=== PATIENT | female | born 1945 | race Two or more races ===

== ENCOUNTER 2020-07-30 23:10 | Emergency (ER) | payer MEDICARE, OTHER ==
[~2020-07-30] VITALS: Ht 162.6 cm; Wt 63.5 kg
--- NOTE | 2020-07-30 23:14 | NUR ---
[id number] FROM HOME C/O FOREHEAD LACERATION S/P MECHANICAL FALL GREENHOUSE ASSISTANT -KO, -BLOOD THINNER, +TDAP UP TO DATE, PT AAOX2, ABLE TO MAKE NEEDS KNOWN, DENIES ANY DIZZINESS, NO SOB, NO N/V NOTED. VSS. WCTM
--- NOTE | 2020-07-31 00:32 | NUR ---
called linda left message
--- NOTE | 2020-07-31 00:32 | NUR ---
linda [phone]
--- NOTE | 2020-07-31 01:01 | NUR ---
[facility] eta [phone]
--- NOTE | 2020-07-31 01:22 | NUR ---
called [facility], spoke to jj, aware pt will be coming back.
--- NOTE | 2020-07-31 02:45 | NUR ---
PT LEFT [facility]IA [facility] IN STABLE CONDITION, NOT IN ANY DISTRESS, -SOB.
[2020-07-31 06:27] VITALS: BP 129/69
== END 2020-07-31 02:45 | disposition home or self-care (01) ==
LOC: ER 23:12
DX: S01.81XA Laceration without foreign body of other part of head, initial encounter (principal); W18.39XA Other fall on same level, initial encounter; Y93.89 Activity, other specified; Y92.89 Other specified places as the place of occurrence of the external cause; Y99.8 Other external cause status
CPT/HCPCS: 70450-TC

== ENCOUNTER 2021-11-14 19:42 | Emergency (ER) | payer MEDICARE, OTHER ==
[~2021-11-14] VITALS: Ht 162.6 cm; Wt 61.7 kg
--- NOTE | 2021-11-14 20:30 | NUR ---
TO ER BED 3. [id number] FROM [facility] C/O FALL WHILE USING WALKER, LAC TO R LEG. PT DENIES HEAD TRAUMA. DOES NOT RECALL LAST TETANUS SHOT. AWAITING MD TYSON
[2021-11-14] MEDS ORDERED: TDAP [DIPH/PERTUSSIS/TET] 0.5 ML VIAL IM ONE ×2 (20:52→21:00)
[2021-11-14] MEDS ORDERED: LIDOCAINE 1%-EPI 1:100,000 20 ML VIAL TP ONE (21:00)
--- NOTE | 2021-11-14 21:13 | NUR ---
AT BEDSIDE FOR WOUND REPAIR
--- NOTE | 2021-11-14 23:49 | NUR ---
[facility] ETA X [id number]
--- NOTE | 2021-11-15 00:32 | NUR ---
REPORT GIVEN TO ESTEFANIA CAREGIVER AT THE [facility]
--- NOTE | 2021-11-15 00:33 | NUR ---
[facility] UNIT 305 AT BEDSIDE FOR PT TRANSPORT TO [facility]
--- NOTE | 2021-11-15 00:44 | NUR ---
PT LEFT ON GURNEY WITH 2 EMT
[2021-11-15 00:47] VITALS: BP 127/71
== END 2021-11-15 00:47 ==
LOC: ER 19:52
DX: S71.111A Laceration without foreign body, right thigh, initial encounter (principal); W18.30XA Fall on same level, unspecified, initial encounter; Y93.01 Activity, walking, marching and hiking; Y92.89 Other specified places as the place of occurrence of the external cause; Y99.8 Other external cause status
CPT/HCPCS: 90715

== ENCOUNTER 2021-12-13 15:52 | Emergency (ER) | payer MEDICARE, OTHER ==
[~2021-12-13] VITALS: Ht 162.6 cm; Wt 62.6 kg
--- NOTE | 2021-12-13 15:56 | NUR ---
TO ER BED 1, BIB RA [facility] FROM [facility],LACERATION TO LEFT FOREARM,S/P GLF, AAOX2, BREATHING EVEN AND NON LABORED, AWAITING MD ORDERS
[2021-12-13] MEDS ORDERED: TDAP [DIPH/PERTUSSIS/TET] 0.5 ML VIAL IM ONE ×2 (16:30→16:40)
[2021-12-13] MEDS ORDERED: LIDOCAINE 1%-EPI 1:100,000 50 ML VIAL IJ ONE (16:30)
--- NOTE | 2021-12-13 16:50 | NUR ---
blood drow and sent to lab
[2021-12-13 17:08] LABS: BASOPHILS % (AUTO) 0.4 % (0.0-2.0); EOSINOPHILS % (AUTO) 1.8 % (0.0-6.0); HEMATOCRIT 38 % (33-45); HEMOGLOBIN 12.7 g/dL (11.5-14.8); LYMPHOCYTES # (AUTO) 1.3 K/uL (0.8-4.8); LYMPHOCYTES % (AUTO) 27.7 % (20.0-44.0); MEAN CORPUSCULAR HGB CONC 34 g/dl (31.0-36.0); MEAN CORPUSCULAR VOLUME 88 fL (82-100); MONOCYTES # (AUTO) 0.7 K/uL (0.1-1.30); MONOCYTES % (AUTO) 15.9 % (2.0-12.0); NEUTROPHILS # (AUTO) 2.4 K/uL (1.8-8.9); NEUTROPHILS % (AUTO) 54.2 % (43.0-81.0); PLATELET COUNT (AUTO) 160 K/uL (150-450); RED BLOOD CELL COUNT(AUTO) 4.28 MIL/uL (4.0-5.2); WHITE BLOOD COUNT (AUTO) 4.5 K/uL (4.3-11.0)
--- NOTE | 2021-12-13 17:08 | NUR ---
TO CT SCAN
[2021-12-13 17:18] LABS: CALCIUM, SERUM 8.4 mg/dL (8.5-10.1); CARBON DIOXIDE 26 mmol/L (21-32); CHLORIDE 103 mmol/L (98-107); CREATININE 0.8 mg/dL (0.6-1.3); GLUCOSE 96 mg/dL (74-106); POTASSIUM 4.5 mmol/L (3.5-5.1); SODIUM SERUM 136 mmol/L (136-145); UREA NITROGEN, BLOOD 14 mg/dL (7-18)
[2021-12-13 18:38] LABS: BILIRUBIN,URINE NEGATIVE (NEGATIVE); COLOR,URINE YELLOW (YELLOW); LEUKOCYTE ESTERASE ,URINE NEGATIVE (NEGATIVE); NITRITE, URINE NEGATIVE (NEGATIVE); PH,URINE 6.5 (5.0-8.0); PROTEIN,URINE NEGATIVE (NEGATIVE); UGLUCOSE NEGATIVE (NEGATIVE)
[2021-12-13 18:44] LABS: BAND % (MANUAL) 1 % (0.0-5.0); EOSINOPHILS % (MANUAL) 5 % (0-4); LYMPHOCYTES % (MANUAL) 29 % (16-48); MONOCYTES % (MANUAL) 7 % (0-11.0); NEUTROPHILS % (MANUAL) 58 (42-76)
[2021-12-13 18:48] LABS: BACTERIA,URINE 2+ /HPF (None Seen); RBC,URINE 0-2 /HPF (0-2); SQUAMOUS EPITHELIAL CELL,UR 21-50 /HPF (None Seen); WBC,URINE 0-2 /HPF (0-3)
--- NOTE | 2021-12-13 19:14 | NUR ---
AT BEDSIDE FOR LAC REPAIR
--- NOTE | 2021-12-13 19:18 | NUR ---
REPORT GIVEN TO JACQUI TAVARES FOR RAHUL
--- NOTE | 2021-12-13 19:41 | NUR ---
SUTURING OF WOUND DONE BY DR LIU AT BEDSIDE
--- NOTE | 2021-12-13 20:15 | NUR ---
[facility] ETA 7
--- NOTE | 2021-12-13 20:55 | NUR ---
[facility] AT BEDSIDE FOR HEADER OPERATOR
[2021-12-13 20:56] VITALS: BP 129/77
--- NOTE | 2021-12-13 21:02 | NUR ---
IV CANNULA REMOVED.
--- NOTE | 2021-12-13 21:03 | NUR ---
Patient discharged to home in stable condition. Written and verbal after care instructions given. Patient verbalizes understanding of instruction.
== END 2021-12-13 21:08 ==
LOC: ER 15:55
DX: S51.012A Laceration without foreign body of left elbow, initial encounter (principal); R55 Syncope and collapse; R51.9 Headache, unspecified; M54.2 Cervicalgia; W18.39XA Other fall on same level, initial encounter; Y93.89 Activity, other specified; Y92.89 Other specified places as the place of occurrence of the external cause; Y99.8 Other external cause status
CPT/HCPCS: 12034; 36415; 70450; 71045; 72125; 73080; 80048; 81001; 84484; 85007; 85025; 85730; 87086; 90471; 90715; 93005; 99285; A6403; J3490

== ENCOUNTER 2021-12-25 15:33 | Inpatient (IN) | payer MEDICARE, OTHER ==
[~2021-12-25] VITALS: Ht 165.1 cm; Wt 71.7 kg
--- NOTE | 2021-12-25 15:41 | NUR ---
BIB RA 60 FROM [facility]ARE [facility],MORE ALTERED THAN NORMAL X AROUND [id number] WITH R FACIAL DROOP AND SLURRED SPEECH. TO ER BED 4, HOOKED TO [facility], NSR NOTED. CHANGED TO HOSP GOWN, WARM BLANKET PROVIDED. BREATHING EVEN AND UNLABORED. AWAITING MD TYSON
--- NOTE | 2021-12-25 15:42 | NUR ---
DR LIU AT BEDSIDE
[2021-12-25] MEDS ORDERED: POTA8TAB3 PO (15:51)
[2021-12-25] MEDS ORDERED: ROPI0.5T4 PO (15:51)
[2021-12-25] MEDS ORDERED: PSYL1PAC8 PO (15:51)
[2021-12-25] MEDS ORDERED: CRAN425C6 PO (15:51)
[2021-12-25] MEDS ORDERED: OLAN10TA3 PO (15:51)
[2021-12-25] MEDS ORDERED: ACET-2605 PO (15:51)
[2021-12-25] MEDS ORDERED: FURO-145 PO (15:51)
[2021-12-25] MEDS ORDERED: TEMA15CA PO (15:51)
[2021-12-25] MEDS ORDERED: OLAN5TAB3 PO (15:51)
[2021-12-25] MEDS ORDERED: DIVA125T32 PO ×2 (15:51)
[2021-12-25] MEDS ORDERED: MULT-24 PO (15:51)
[2021-12-25] MEDS ORDERED: DOCU-141 PO (15:51)
[2021-12-25] MEDS ORDERED: ACET-868 PO (15:52)
[2021-12-25] MEDS ORDERED: BISA10SU11 RC (15:52)
[2021-12-25] MEDS ORDERED: NA P133E RC (15:52)
--- NOTE | 2021-12-25 15:52 | NUR ---
PT TAKEN TO CT VIA [facility]
[2021-12-25] MEDS ORDERED: IV LR 1000 ML 1,000 ML IV ONE (16:00)
[2021-12-25] MEDS ORDERED: DEXTROSE 50%-WATER 50 ML DISP.SYRIN IV ONE (16:00)
[2021-12-25 16:02] LABS: BASOPHILS % (AUTO) 0.3 % (0.0-2.0); EOSINOPHILS % (AUTO) 1.8 % (0.0-6.0); HEMATOCRIT 36 % (33-45); LYMPHOCYTES # (AUTO) 2.5 K/uL (0.8-4.8); LYMPHOCYTES % (AUTO) 40.9 % (20.0-44.0); MEAN CORPUSCULAR HGB CONC 33 g/dl (31.0-36.0); MEAN CORPUSCULAR VOLUME 90 fL (82-100); MONOCYTES % (AUTO) 16.2 % (2.0-12.0); NEUTROPHILS # (AUTO) 2.5 K/uL (1.8-8.9); NEUTROPHILS % (AUTO) 40.8 % (43.0-81.0); PLATELET COUNT (AUTO) 201 K/uL (150-450); RED BLOOD CELL COUNT(AUTO) 4.01 MIL/uL (4.0-5.2)
[2021-12-25] MEDS ORDERED: DEXTROSE 50%-WATER 50 ML DISP.SYRIN ONE (16:19)
[2021-12-25 16:39] LABS: THYROID STIMULATING HORMONE 5.391 uIU/mL (0.358-3.74)
[2021-12-25 16:43] LABS: ALANINE AMINOTRANSFERASE 37 U/L (12-78); ALBUMIN 2.9 g/dL (3.4-5.0); ALKALINE PHOSPHATASE 53 U/L (46-116); ASPARTATE AMINOTRANSFERASE 78 U/L (15-37); BILIRUBIN,DIRECT 0.2 mg/dL (0.0-0.2); BILIRUBIN,TOTAL 0.4 mg/dL (0.2-1.0); CALCIUM, SERUM 8.7 mg/dL (8.5-10.1); CREATININE 0.7 mg/dL (0.6-1.3); GLUCOSE 100 mg/dL (74-106); TOTAL PROTEIN, SERUM 6.6 g/dL (6.4-8.2); UREA NITROGEN, BLOOD 18 mg/dL (7-18)
--- NOTE | 2021-12-25 16:57 | NUR ---
GIRISH LOYA SON [phone]
[2021-12-25 17:21] LABS: CARBON DIOXIDE 27 mmol/L (21-32); CHLORIDE 108 mmol/L (98-107); POTASSIUM 3.8 mmol/L (3.5-5.1); SODIUM SERUM 142 mmol/L (136-145)
[2021-12-25 17:37] LABS: EOSINOPHILS % (MANUAL) 2 % (0-4); LYMPHOCYTES % (MANUAL) 36 % (16-48); MONOCYTES % (MANUAL) 12 % (0-11.0); NEUTROPHILS % (MANUAL) 50 (42-76)
--- NOTE | 2021-12-25 18:56 | NUR ---
SUBMITTED MOVE SHEET
--- NOTE | 2021-12-25 19:05 | NUR ---
ASSUMED CARE OF PT. PT SLEEPING COMFORTABLY IN BED ATTACHED TO MEDICAL INSURANCE COLLECTOR AND POX.
--- NOTE | 2021-12-25 19:17 | NUR ---
RAPID COVID SWAB DONE AND SENT TO LAB
--- NOTE | 2021-12-25 20:26 | NUR ---
URINE COLLECTED SENT TO LAB
--- NOTE | 2021-12-25 20:27 | NUR ---
URINE COLLECTED AND SENT TO LAB
--- NOTE | 2021-12-25 20:35 | NUR ---
EPIC PANEL PAGED
--- NOTE | 2021-12-25 21:34 | NUR ---
UPDATED GIRISH LOYA SON [phone]
[2021-12-25 21:59] LABS: BILIRUBIN,URINE NEGATIVE (NEGATIVE); COLOR,URINE YELLOW (YELLOW); LEUKOCYTE ESTERASE ,URINE NEGATIVE (NEGATIVE); NITRITE, URINE NEGATIVE (NEGATIVE); PROTEIN,URINE NEGATIVE (NEGATIVE); UGLUCOSE 100 MG/DL mg/dL (NEGATIVE)
[2021-12-25 22:00] LABS: RBC,URINE 0-2 /HPF (0-2); WBC,URINE 0-2 /HPF (0-3)
[2021-12-25] MEDS ORDERED: ACETAMINOPHEN 325 MG TABLET PO PRN (22:00)
[2021-12-25] MEDS ORDERED: ONDANSETRON HCL/PF 4 MG/2 ML VIAL IVP PRN (22:00)
[2021-12-25] MEDS ORDERED: ENOXAPARIN SODIUM 30 MG/0.3 ML DISP.SYRIN SQ SCH (22:00)
[2021-12-25 22:01] LABS: BACTERIA,URINE 1+ /HPF (None Seen)
--- NOTE | 2021-12-25 22:26 | NUR ---
GAVE REPORT TO CHAITANYA NEVILLE FOR RAHUL
[2021-12-25 22:45] VITALS: BP 124/61
--- NOTE | 2021-12-25 22:45 | NUR ---
MS BOILER ENGINEER NOTE PT TRANSPORTED VIA GURNEY TO UNIT AT THIS TIME. PT FROM [facility] ADMITTED TO [facility] FROM ER UNDER RECORDS AND INFORMATION MANAGER YANELY FOR ADMITTING DX OF HYPOGLYCEMIA. A/O X2. PT STABLE ON ROOM AIR, SATURATING 98%. NO SOB OR S/S OF RESPIRATORY DISTRESS. BREATHING EVEN AND UNLABORED. NOTED WITH MULTIPLE SKIN ISSUES, INCLUDING SUTURES ON L ELBOW, WOUNDS ON B HANDS, L NOSE, L EYEBROW, AND R INDEX FINGER. WOUND CONSULT ORDERED. IV ACCESS R WRIST 20 GAUGE AND LFA 18 GAUGE, INTACT AND PATENT. ORIENTED TO UNIT, STAFF, AND ROOM. ALL BELONGINGS ACCOUNTED FOR AND BELONGINGS LIST SIGNED. SAFETY PRECAUTIONS IN PLACE. BED IN LOWEST LOCKED POSITION, HOB ELEVATED, SIDE RAILS UP X3, AND CALL LIGHT AND TABLE WITHIN REACH. ALL NEEDS MET AT THIS TIME.
[2021-12-25] MEDS: IV D5/ 0.9% NACL 1,000 ML IV PRN (23:33)
--- NOTE | 2021-12-25 23:52 | NUR ---
RN NOTE PHARMACY CALLED AND REQUESTED LOVENOX BE SWITCHED FROM 30 MG Q24H TO 40 MG Q24H DUE TO CREATINE CLEARANCE OF 60. NOTIFIED REVIEW APPRAISER YANELY WITH ORDER TO CHANGE LOVENOX TO 40 MG Q24H. NOTED AND CARRIED OUT.
[2021-12-25] MEDS: ENOXAPARIN SODIUM 40 MG/0.4 ML DISP.SYRIN SQ SCH (23:56)
[2021-12-26] MEDS ORDERED: DEXTROSE 50%-WATER 50 ML DISP.SYRIN IV PRN (06:30)
[2021-12-26 06:32] LABS: BASOPHILS % (AUTO) 0.3 % (0.0-2.0); EOSINOPHILS % (AUTO) 1.9 % (0.0-6.0); HEMATOCRIT 36 % (33-45); HEMOGLOBIN 11.9 g/dL (11.5-14.8); LYMPHOCYTES # (AUTO) 1.8 K/uL (0.8-4.8); MEAN CORPUSCULAR HGB CONC 33 g/dl (31.0-36.0); MEAN CORPUSCULAR VOLUME 91 fL (82-100); MONOCYTES # (AUTO) 0.8 K/uL (0.1-1.30); MONOCYTES % (AUTO) 14.6 % (2.0-12.0); NEUTROPHILS % (AUTO) 51.2 % (43.0-81.0); PLATELET COUNT (AUTO) 159 K/uL (150-450); RED BLOOD CELL COUNT(AUTO) 3.92 MIL/uL (4.0-5.2); WHITE BLOOD COUNT (AUTO) 5.8 K/uL (4.3-11.0)
[2021-12-26] MEDS: BLOOD SUGAR DIAGNOSTIC 1 EACH STRIP IN SCH ×5 (06:43→21:20)
--- NOTE | 2021-12-26 06:43 | NUR ---
MS RN CLOSING NOTE PT AWAKE IN BED. A/O X2. PT STABLE ON ROOM AIR, SATURATING 98%. NO SOB OR S/S OF RESPIRATORY DISTRESS. BREATHING EVEN AND UNLABORED. IV ACCESS R WRIST 20 GAUGE AND LFA 18 GAUGE, INTACT AND PATENT, RUNNING D5 NS @ 100 ML/HR. ALL DUE MEDS GIVEN ORDERED. NO S/S OF HYPOGLYCEMIA. SAFETY PRECAUTIONS IN PLACE AT ALL TIMES. BED IN LOWEST LOCKED POSITION, HOB ELEVATED, SIDE RAILS UP X3, AND CALL LIGHT AND TABLE WITHIN REACH. ALL NEEDS MET AT THIS TIME AND WILL ENDORSE TO ONCOMING SHIFT FOR RAHUL.
[2021-12-26] MEDS ORDERED: CEFTRIAXONE 1 G in IV D5W 50 ML IV SCH (07:00)
[2021-12-26 07:04] LABS: CALCIUM, SERUM 8.7 mg/dL (8.5-10.1); CREATININE 0.6 mg/dL (0.6-1.3); MAGNESIUM 2.1 mg/dL (1.8-2.4); PHOSPHORUS 2.9 mg/dL (2.5-4.9); POTASSIUM 3.9 mmol/L (3.5-5.1)
--- NOTE | 2021-12-26 07:45 | NUR ---
MS RN OPENING NOTES RECEIVED PATIENT SLEEPING COMFORTABLY IN BED, A/O X2. PATIENT IS STABLE ON ROOM AIR, NO SOB OR S/S OF RESPIRATORY DISTRESS. BREATHING EVEN AND UNLABORED. IV ACCESS R WRIST 20 GAUGE AND LFA 18 GAUGE, INTACT AND PATENT, RUNNING D5 NS @ 100 ML/HR. NO S/S OF HYPOGLYCEMIA. SAFETY PRECAUTIONS IN PLACE AT ALL TIMES. BED IN LOWEST LOCKED POSITION, HOB ELEVATED, SIDE RAILS UP X3, AND CALL LIGHT AND TABLE WITHIN REACH. WILL CONTINUE TO MONITOR SHIFT FOR RAHUL.
[2021-12-26 08:00] VITALS: BP 122/85
[2021-12-26] MEDS: CEFTRIAXONE 1 G in IV D5W 50 ML IV SCH (08:04)
[2021-12-26] MEDS: IV D5/ 0.9% NACL 1,000 ML IV PRN (08:15)
--- NOTE | 2021-12-26 10:05 | NUR ---
WOUND CARE CONSULT: PT PRESENTS WITH FACIAL LESIONS, BILATERAL DRY WOUNDS ON ELBOWS, LEFT ARM SUTURES AND SACRAL INTACT DEEP TISSUE INJURY, ALL PRESENT ON ADMISSION. DR DE SOUZA NOTIFIED OF SURGICAL CONSULT REQUEST. PT TO BE PLACED ON CHRISTIANE ISOFLEX LOW AIRLOSS BED. RECOMMENDATIONS MADE FOR SKIN PROTECTION. DISCUSSED WITH NURSING STAFF. MD IN AGREEMENT WITH PLAN OF CARE.
[2021-12-26] MEDS: Z GUARD REMEDY 4 OZ OINT TP SCH (10:39)
[2021-12-26 16:00] VITALS: BP 127/99
--- NOTE | 2021-12-26 17:00 | NUR ---
MS RN NOTES PATIENT'S GLUCOSE LEVEL IS 156 @ 1700. PATIENT HAS NO SLIDING SCALE ORDERED FOR THIS PATIENT, AND WILL CONTINUE TO MONITOR FOR ANY SIGNS OF GLUCOSE LEVEL CHANGES
--- NOTE | 2021-12-26 18:22 | NUR ---
MS RN CLOSING NOTES PATIENT LYING COMFORTABLY IN BED. SHE IS ALERT/ORIENTED X 2, PATIENT STABLE ON RA, NO S/S OF DISTRESS OR SOB NOTED, BREATHING EVEN AND UNLABORED.RIGHT WRIST 20 GAUGE, LEFT FOREARM 18 GAUGE, INTACT AND INFUSING D5 1/2 NS @ 100 ML/HR. NO SIGNS OF HYPOGLYCEMIC AND POSSIBLE STROKE SYMPTOMS. PATIENT IS REFUSING TO EAT HER LUNCH DESPITE THE EFFORT TO OFFER FOOD. SAFETY MEASURES IN PLACE: CALL LIGHT WITHIN REACH, SIDE RAILS UP X 3, BED LOCKED IN LOWEST POSITION, HOB ELEVATED, BED ALARM ON. WILL ENDORSE TO INCOMING SHIFT FOR CONTINUITY OF CARE
--- NOTE | 2021-12-26 19:49 | NUR ---
MS RN OPENING NOTES RECEIVED PATIENT IN BED, AWAKE, A/O X2, STABLE ON RA, NO S/S OF RESPIRATORY DISTRESS. PATIENT BREATHING EVEN AND UNLABORED WITH EQUAL RISE AND FALL OF THE CHEST. NO C/O PAIN. RIGHT WRIST 20 GAUGE, LEFT FOREARM 18 GAUGE, INTACT AND INFUSING D5 1/2 NS @ 100 ML/HR. SAFETY PRECAUTIONS IN PLACE, CALL LIGHT WITHIN REACH AND BED ALARM ON. SIDE RAILS UP X3 FOR SAFETY. BED LOCKED IN LOWEST POSITION, HOB ELEVATED. WILL CONTINUE TO MONITOR.
[2021-12-26 20:00] VITALS: BP 108/51
[2021-12-26] MEDS: ENOXAPARIN SODIUM 40 MG/0.4 ML DISP.SYRIN SQ SCH (22:12)
[2021-12-27] MEDS: IV D5/ 0.9% NACL 1,000 ML IV PRN
[2021-12-27] MEDS: BLOOD SUGAR DIAGNOSTIC 1 EACH STRIP IN SCH ×6 (01:05→21:10)
[2021-12-27 06:16] LABS: BASOPHILS % (AUTO) 0.3 % (0.0-2.0); EOSINOPHILS % (AUTO) 2.4 % (0.0-6.0); HEMATOCRIT 34 % (33-45); HEMOGLOBIN 11.4 g/dL (11.5-14.8); LYMPHOCYTES # (AUTO) 1.7 K/uL (0.8-4.8); MEAN CORPUSCULAR HGB CONC 33 g/dl (31.0-36.0); MEAN CORPUSCULAR VOLUME 90 fL (82-100); MONOCYTES # (AUTO) 0.8 K/uL (0.1-1.30); MONOCYTES % (AUTO) 15.9 % (2.0-12.0); NEUTROPHILS # (AUTO) 2.5 K/uL (1.8-8.9); NEUTROPHILS % (AUTO) 48.4 % (43.0-81.0); PLATELET COUNT (AUTO) 163 K/uL (150-450); RED BLOOD CELL COUNT(AUTO) 3.79 MIL/uL (4.0-5.2); WHITE BLOOD COUNT (AUTO) 5.2 K/uL (4.3-11.0)
--- NOTE | 2021-12-27 06:41 | NUR ---
MS RN CLOSING NOTES PATIENT IS SLEEPING IN BED. STABLE ON RA, NO S/S OF RESPIRATORY DISTRESS. PATIENT BREATHING IS EVEN AND UNLABORED WITH EQUAL RISE AND FALL OF THE CHEST. RIGHT WRIST 20 GAUGE, LEFT FOREARM 18 GAUGE, INTACT AND INFUSING D5 1/2 NS @ 100 ML/HR. ALL PATIENT NEEDS HAVE BEEN MET ANTICIPATED. SAFETY PRECAUTIONS IN PLACE, CALL LIGHT WITHIN REACH AND BED ALARM ON. SIDE RAILS UP X3 FOR SAFETY. BED LOCKED IN LOWEST POSITION, HOB ELEVATED. WILL CONTINUE TO MONITOR AND ENDORSE TO AM SHIFT.
[2021-12-27 07:21] LABS: CALCIUM, SERUM 8.5 mg/dL (8.5-10.1); CARBON DIOXIDE 26 mmol/L (21-32); CHLORIDE 114 mmol/L (98-107); CREATININE 0.5 mg/dL (0.6-1.3); GLUCOSE 103 mg/dL (74-106); MAGNESIUM 1.8 mg/dL (1.8-2.4); PHOSPHORUS 2.6 mg/dL (2.5-4.9); POTASSIUM 3.4 mmol/L (3.5-5.1); SODIUM SERUM 147 mmol/L (136-145); UREA NITROGEN, BLOOD 4 mg/dL (7-18)
--- NOTE | 2021-12-27 07:25 | NUR ---
MS RN OPENING NOTE RECEIVED PT ASLEEP IN BED, EASILY AROUSED. A/O X2, REORIENTED PT NEEDED. ON RA, TOLERATING WELL. NO SOB NOTED. NOT IN ANY SIGN OF RESPIRATORY DISTRESS. IV ACCESS IN R WRIST G #20 SALINE LOCK, INTACT AND PATENT. LFA G #18 INTACT AND PATENT WITH D5 NS INFUSING AT 100 ML/HR. SAFETY MEASURES IN PLACE: BED IN LOWEST AND LOCKED POSITION, SIDE RAILS UP X3, BED ALARM ON, AND CALL LIGHT WITHIN REACH. WILL CONTINUE TO MONITOR PT.
[2021-12-27 08:00] VITALS: BP 149/79
[2021-12-27] MEDS: CEFTRIAXONE 1 G in IV D5W 50 ML IV SCH (08:59)
[2021-12-27] MEDS ORDERED: DIVALPROEX SODIUM 125 MG TABLET.DR PO SCH ×2 (09:00→22:00)
[2021-12-27] MEDS ORDERED: OLANZAPINE 10 MG TABLET PO SCH ×2 (09:00→22:00)
[2021-12-27] MEDS: MULTIVITAMINS,THERAGRAN 1 UDTAB TABLET PO SCH (09:30)
[2021-12-27] MEDS: DOCUSATE SODIUM 100 MG CAPSULE PO SCH ×2 (09:31→16:13)
[2021-12-27] MEDS: DIVALPROEX SODIUM 125 MG TABLET.DR PO SCH ×3 (09:31→16:13)
[2021-12-27] MEDS: OLANZAPINE 5 MG TABLET PO SCH (09:31)
[2021-12-27] MEDS: FUROSEMIDE 20 MG TABLET PO SCH (09:31)
[2021-12-27] MEDS: Z GUARD REMEDY 4 OZ OINT TP PRN ×2 (09:40→10:02)
[2021-12-27] MEDS: Z GUARD REMEDY 4 OZ OINT TP SCH (10:06)
[2021-12-27 11:34] LABS: NEUTROPHILS % (MANUAL) 52 (42-76)
[2021-12-27 11:35] LABS: BAND % (MANUAL) 1 % (0.0-5.0); EOSINOPHILS % (MANUAL) 1 % (0-4); LYMPHOCYTES % (MANUAL) 34 % (16-48); MONOCYTES % (MANUAL) 8 % (0-11.0)
[2021-12-27 11:36] LABS: METAMYELOCYTES % 4 % (0-0)
--- NOTE | 2021-12-27 14:40 | NUR ---
RN NOTE OBTAINED A CONSENT FOR AN INCISIONAL BIOPSY OF NOSE FROM SON, GIRISH GRANADOS VIA TELEPHONE WITH CHAITANYA FENG WITNESS.
[2021-12-27 16:00] VITALS: BP 128/70
--- NOTE | 2021-12-27 16:19 | NUR ---
RN NOTE RECEIVED AN ORDER FROM KONRAD ZAMUDIO NP TO DC IV FLUIDS OF D5 NS. PER KONRAD, IF BLOOD SUGAR DOES NOT IMPROVE AND GOES HYPOGLYCEMIC, PUT BACK THE IV FLUIDS OF D5 NS. KONRAD ALSO ORDERED TO DC ROCEPHIN IV ANTIBIOTICS PROCALCITONIN IS WNL. PT'S CURRENT BLOOD SUGAR IS 109 MG/DL.
--- NOTE | 2021-12-27 18:46 | NUR ---
MS RN CLOSING NOTE PT ASLEEP IN BED, EASILY AROUSED. A/O X1, REORIENTED PT NEEDED. ON RA, TOLERATING WELL. NO SOB NOTED. NOT IN ANY SIGN OF RESPIRATORY DISTRESS. IV ACCESS IN R WRIST G #20 SALINE LOCK, INTACT AND PATENT. LFA G #18 SALINE LOCK, INTACT AND PATENT. ALL NEEDS ATTENDED. KEPT CLEAN AND COMFORTABLE. TURNED AND REPOSITIONED Q2HRS AND NEEDED. SAFETY MEASURES IN PLACE: BED IN LOWEST AND LOCKED POSITION, SIDE RAILS UP X3, BED ALARM ON, AND CALL LIGHT WITHIN REACH. WILL ENDORSE TO AUTOMATIC FANCY MACHINE OPERATOR NURSE FOR RAHUL.
--- NOTE | 2021-12-27 19:40 | NUR ---
MS RN OPENING NOTE RECEIVED PT RESTING IN BED COMFORTABLY, EASILY AROUSED. A/O X2, REORIENTED PT NEEDED. BREATHING EVEN AND UNALBORED, TOLERATING ROOM AIR WELL. NO SOB NOTED. NO S/S OF RESPIRATORY DISTRESS. IV ACCESS IN R WRIST G #20 S/L, INTACT AND PATENT. LFA G #18 INTACT AND PATENT; NO S/S OF REDNESS OR INFILTRATION NOTED; SAFETY MEASURES IN PLACE: BED IN LOWEST AND LOCKED POSITION, SIDE RAILS UP X3, BED ALARM ON, AND CALL LIGHT WITHIN REACH. WILL CONT PLAN OF CARE
[2021-12-27 20:00] VITALS: BP 121/61
[2021-12-27] MEDS: ENOXAPARIN SODIUM 40 MG/0.4 ML DISP.SYRIN SQ SCH ×2 (21:05→21:19)
--- NOTE | 2021-12-27 21:19 | NUR ---
MS RN NOTES PATIENT UNDERGOING PROCEDURE IN AM; NO LOVENOX ADMINISTERED 12/27; CHARGE AWARE
[2021-12-27] MEDS ORDERED: ropiniROLE 0.5 MG TABLET PO SCH (22:00)
[2021-12-27] MEDS ORDERED: TEMAZEPAM 15 MG CAPSULE PO SCH (22:00)
[2021-12-28] MEDS: BLOOD SUGAR DIAGNOSTIC 1 EACH STRIP IN SCH ×5 (00:35→17:18)
--- NOTE | 2021-12-28 06:48 | NUR ---
MS RN CLOSING NOTE PT RESTING IN BED COMFORTABLY, EASILY AROUSED. A/O X2, REORIENTED PT NEEDED. BREATHING EVEN AND UNLABORED; TOLERATING ROOM AIR WELL. NO SOB NOTED. NO S/S OF RESPIRATORY DISTRESS. IV ACCESS IN R WRIST G #20 S/L, INTACT AND PATENT. LFA G #18 INTACT AND PATENT; NO S/S OF REDNESS OR INFILTRATION NOTED; ALL NEEDS RENDERED; SAFETY MEASURES IN PLACE: BED IN LOWEST AND LOCKED POSITION, SIDE RAILS UP X3, BED ALARM ON, AND CALL LIGHT WITHIN REACH. WILL ENDORSE RAHUL TO ONCOMING SHIFT
[2021-12-28 08:00] VITALS: BP 116/63
[2021-12-28] MEDS: Z GUARD REMEDY 4 OZ OINT TP SCH (08:29)
[2021-12-28] MEDS ORDERED: POTASSIUM CHLORIDE 10 MEQ TABLET.SA PO SCH (09:00)
[2021-12-28] MEDS: FUROSEMIDE 20 MG TABLET PO SCH (09:23)
[2021-12-28] MEDS: OLANZAPINE 5 MG TABLET PO SCH (09:23)
[2021-12-28] MEDS: DOCUSATE SODIUM 100 MG CAPSULE PO SCH ×2 (09:23→16:19)
[2021-12-28] MEDS: MULTIVITAMINS,THERAGRAN 1 UDTAB TABLET PO SCH (09:23)
[2021-12-28] MEDS: DIVALPROEX SODIUM 125 MG TABLET.DR PO SCH ×3 (09:23→16:19)
[2021-12-28 10:37] LABS: BASOPHILS % (AUTO) 0.3 % (0.0-2.0); EOSINOPHILS % (AUTO) 1.2 % (0.0-6.0); HEMATOCRIT 36 % (33-45); LYMPHOCYTES # (AUTO) 1.8 K/uL (0.8-4.8); LYMPHOCYTES % (AUTO) 28.5 % (20.0-44.0); MEAN CORPUSCULAR HGB CONC 34 g/dl (31.0-36.0); MEAN CORPUSCULAR VOLUME 89 fL (82-100); MONOCYTES % (AUTO) 14.9 % (2.0-12.0); NEUTROPHILS # (AUTO) 3.5 K/uL (1.8-8.9); NEUTROPHILS % (AUTO) 55.1 % (43.0-81.0); PLATELET COUNT (AUTO) 179 K/uL (150-450); RED BLOOD CELL COUNT(AUTO) 3.98 MIL/uL (4.0-5.2); WHITE BLOOD COUNT (AUTO) 6.4 K/uL (4.3-11.0)
[2021-12-28 10:45] LABS: CALCIUM, SERUM 8.7 mg/dL (8.5-10.1); CARBON DIOXIDE 29 mmol/L (21-32); CHLORIDE 108 mmol/L (98-107); CREATININE 0.6 mg/dL (0.6-1.3); GLUCOSE 114 mg/dL (74-106); POTASSIUM 3.3 mmol/L (3.5-5.1); SODIUM SERUM 143 mmol/L (136-145); UREA NITROGEN, BLOOD 8 mg/dL (7-18)
[2021-12-28 10:48] LABS: MAGNESIUM 1.8 mg/dL (1.8-2.4); PHOSPHORUS 3.4 mg/dL (2.5-4.9)
[2021-12-28] MEDS ORDERED: POTASSIUM CHLORIDE 20 MEQ TAB.PRT.SR PO SCH (11:30)
[2021-12-28 16:00] VITALS: BP 118/46
--- NOTE | 2021-12-28 18:50 | NUR ---
MS SENIOR DESIGN ENGINEERING SPECIALIST NOTES PATIENT WAS PICKED UP BY 2 BRICK MASON @ 1850. PATIENT WAS A/O X2, AND IN ROOM AIR, NO SOB OR S/S OF RESPIRATORY DISTRESS. BREATHING EVEN AND UNLABORED. IV ACCESS IN R WRIST 20 GAUGE AND LFA 18 GAUGE WERE DISCONNECTED, AND NO INFILTRATION AND INFLAMMATION. NURSING REPORT WAS GIVEN TO CHAITANYA GRIGGS @ 1648. DISCHARGE PACKAGE & BELONGING LISTS WERE DONE. PATIENT IS STABLE TO BE TRANSFERRED & DISCHARGE.
== END 2021-12-28 19:15 | DRG 637 ==
LOC: ER 15:35 → TELE 21:55 → MED 22:35
PROVIDERS: ADMIT Nurse Practitioner Acute Care
DX: E11.649 Type 2 diabetes mellitus with hypoglycemia without coma (principal); G93.41 Metabolic encephalopathy; E44.0 Moderate protein-calorie malnutrition; E86.0 Dehydration; F02.80 Dementia in other diseases classified elsewhere, unspecified severity, without behavioral disturbance, psychotic disturbance, mood disturbance, and anxiety; G20 Parkinson's disease; Z79.899 Other long term (current) drug therapy; E88.09 Other disorders of plasma-protein metabolism, not elsewhere classified; E87.8 Other disorders of electrolyte and fluid balance, not elsewhere classified; H10.9 Unspecified conjunctivitis; J34.89 Other specified disorders of nose and nasal sinuses; Z87.828 Personal history of other (healed) physical injury and trauma; Z91.81 History of falling; L89.156 Pressure-induced deep tissue damage of sacral region; S51.812A Laceration without foreign body of left forearm, initial encounter; W19.XXXA Unspecified fall, initial encounter; Y92.129 Unspecified place in nursing home as the place of occurrence of the external cause
CPT/HCPCS: 36415; 70450-TC; 71045-TC; 80048-TC; 80061-TC; 80076-TC; 81001; 82962-TC; 83605-TC; 83735-TC; 84100-TC; 84443-TC; 84484-TC; 85025-TC; 87040-TC; 87081-TC; 87086-TC; 92526; 92611-TC; 97116-TC; 97530-TC; C9803; G0378; J0696; J1650; J3490; J7042; J7060; J7120